=== PATIENT | male | born 1950 | race Caucasian/White ===

== ENCOUNTER 2016-11-02 13:01 | Inpatient (IN) | payer MEDICARE ==
[2016-11-02] MEDS ORDERED: Ondansetron INJ* 2 MG/ML VIAL IV PRN (16:11)
[2016-11-02] MEDS ORDERED: Acetaminophen TAB* 325 MG PO PRN (16:11)
[2016-11-02] MEDS ORDERED: NS 0.9% 1000 ML* 1,000 ML IV SCH (17:15)
[2016-11-02 17:45] LABS: Hematocrit 44 % (42-52); Hemoglobin 14.2 g/dl (14.0-18.0); Mean Corpuscular HGB Conc 33 g/dl (31-36); Mean Corpuscular Hemoglobin 30 pg (27-31); Mean Corpuscular Volume 93 fL (80-94); Mean Platelet Volume 10 um3 (7.4-10.4); Red Blood Count 4.69 10^6/ul (4.0-5.4); Red Cell Distribution Width 17 % (10.5-15); White Blood Count 8.5 10^3/ul (3.5-10.8)
[2016-11-02 17:59] LABS: BUN/Creatinine Ratio 69.7 (8-20); Calcium 9.4 mg/dL (8.6-10.3); EGFR African American 343.5 (>60); EGFR Non-African American 267.1 (>60); Potassium 3.9 mmol/L (3.5-5.0)
--- NOTE | 2016-11-02 18:02 | HP ---
HISTORY AND PHYSICAL: * Addendum to History and Physical dictated by Abhay Rodriguez NP. ADDENDUM: Mr. Richard is a 66-year-old male with history of muscular dystrophy who collapsed today during physical therapy session. There is a suspicion that maybe he had a seizure. He was transferred from [facility] after his CT showed two, over 2 cm, lesions in his brain with vasogenic edema. The patient was transferred to our facility for further evaluation and neurosurgery consult. For further details of the patient's presentation and plan, please see history and physical dictated by Abhay Rodriguez on 11/02/16, with which I agree. [id number] #: [id number] MTDD
--- NOTE | 2016-11-02 18:02 | HP ---
ATTENDING PHYSICIAN ADDENDUM NOW INCLUDED ON THIS REPORT CC: Dr. Motta; Dr. Powell * HISTORY AND PHYSICAL: DATE OF ADMISSION: 11/02/16 PRIMARY CARE PROVIDER: Dr. Motta. ATTENDING PHYSICIAN WHILE IN THE HOSPITAL: Dr. Rosalba Riley * (report* dictated by Abhay Rodriguez NP). CONSULTING NEUROSURGEON: Dr. Powell. CHIEF COMPLAINT: Syncope. HISTORY OF PRESENT ILLNESS: Mr. Richard is a 66-year-old male patient. He carries a history of coronary artery disease, hypertension, AFib, SD, hyperlipidemia, spinal muscular atrophy. He comes in to the [facility] today because he had an episode when he was at physical therapy. He had no prodrome. The last thing he remembered is that his physical therapist was going to see another patient. The next thing he knew he woke up and he was in [facility]. He woke up, his tongue was sore. He was told that he bit his tongue pretty hard. He was told that he was unresponsive and he was sent to [facility] where he was evaluated with CAT scan which showed that he did have an intracranial mass and because of this, he was sent to the hospital. There was also noted to be vasogenic edema surrounding the mass as well. He denied having any chest pain prior to or after this. Denied having any shortness of breath. He denied having any recent fevers, chills or cough. He has not had any change in medications, but there was concern because of the intracranial mass and the fact that he would need a neurosurgical evaluation. He was sent to the [facility] for evaluation. PAST MEDICAL HISTORY: Significant for: 1. Hypertension. 2. Hyperlipidemia. 3. CAD. 4. SD. 5. Spinal muscular atrophy which has left him wheelchair bound. PAST SURGICAL HISTORY: 1. He has had a tonsillectomy. 2. Cardiac cath. 3. Left hip surgery. 4. Pacemaker. HOME MEDICATIONS: According to the list that he provided include: 1. Lasix 20 mg daily. 2. Allopurinol 300 mg p.o. daily. 3. Apixaban 5 mg daily. ALLERGIES TO MEDICATIONS: Include no known drug allergies. FAMILY HISTORY: His mother had a history of hypertension. Father had a history of SD. SOCIAL HISTORY: He does not smoke. He rarely drinks alcohol. Surrogate decision maker is his sister, Nina. REVIEW OF SYSTEMS: There is no documented fever. He denied having any significant weight change. There was no double vision. He denies having any ear discharge. There was no rhinorrhea. There is no sore throat. There is no thyroid enlargement. Denied having any chest pain. There was no shortness of breath. There was no abdominal pain. No nausea. No vomiting. No dysuria. No frequency. There was question of seizure. There was loss of consciousness. Review of 14 systems completed, all others negative. PHYSICAL EXAMINATION GENERAL: At this time, Mr. Richard is a 66-year-old male patient. He is sitting in the hospital bed. He does not appear to be in any acute distress. VITAL SIGNS: Blood pressure 128/89, pulse 81, respirations 18, O2 sat 100%, and temperature 98.0. HEENT: Head is atraumatic and normocephalic. Eyes: EOMs intact. Sclerae are anicteric and not pale. Throat: Oral mucosa appears to be moist. No oropharyngeal erythema. NECK: Supple. LUNGS: Clear to auscultation. No wheezes, rales, or rhonchi. HEART: Sounds S1, S2. Regular rate and rhythm. No murmurs, rubs, or gallops. ABDOMEN: Soft, flat, nontender. Bowel sounds present. EXTREMITIES: He has essentially no range of motion to the lower extremities. Right upper extremity: He does have about 5/5 strength, but the left is significantly weakened compared to the right. This is his baseline from the spinal muscular atrophy. NEUROLOGIC: He is awake, he is alert, he is oriented x3. His speech is clear. His tongue is midline. Transit Operator are equal, but again, he has significant weakness to his extremities from the spinal muscular atrophy. Strength in his lower extremities is about 1/5. Strength in his right upper extremity is maybe about 5/5 strength. In the left upper extremity, he probably has about 3/5 strength. SKIN: Intact. LABORATORY DATA/DIAGNOSTIC STUDIES: Revealed sodium of 142, potassium of 3.4, chloride of 103, bicarb 26, BUN 33, creatinine of 0.5, glucose of 122, calcium 9.9. Total bili 0.7, AST 19, ALT 20, alk phos 60. Troponin was 0.05. His PT was 11. His INR was 1.03. His WBC was 4.9, RBC 4.65, his hemoglobin was 14.7, hematocrit of 43, platelet count of 116,000. Chest x-ray was noted to be negative. He had a CT of the brain which showed impression: Two lesions in the left middle cranial fossa measuring 2.9 cm x 2.4 cm, significant associated white matter edema with mass effect, but no midline shift. Correlation with brain MRI with and without contrast to be obtained. He had no acute intracranial hemorrhage. He had an EKG obtained today which revealed a paced rhythm with a rate of 79. No further evaluation due to being paced. Old medical records were reviewed. ASSESSMENT AND PLAN: Mr. Richard is a 66-year-old male patient that presented to [facility] today with complaints of having an episode of loss of consciousness. On evaluation, found to have intracranial mass. He will be admitted under inpatient status for: 1. Intracranial mass: At this point, this is obviously concerning for malignancy. We are going to go ahead and get a consult with Dr. Powell. I have ordered Decadron 4 mg every 8 hours and Keppra 1000 mg IV b.i.d. I will at this point get in touch with Neurosurgery who will evaluate him. We will get a CT of the brain with contrast and a CT of the chest, abdomen, and pelvis to make sure that there is not any other sources or any other malignancies or tumors and we will get neuro checks, place him on seizure precautions. 2. Elevated troponin: Etiology is unclear. Question if he may have had an elevated heart rate when this happened. May be demand ischemia. I will cycle these. I will get an echo and I will also place him on telemetry and I will interrogate his pacemaker. 3. Coronary artery disease: We will continue his current medical regimen. 4. Spinal muscular atrophy: Continue his current medical regimen. 5. Hyperlipidemia: Again, we will continue current medical regimen. 6. Atrial fibrillation: I am going to hold the Eliquis in the setting of this acute illness as we may need to do biopsies or possibly invasive procedures. 7. Code status: Full code. 8. Fluids, electrolytes, and nutrition: He can have a heart healthy diet. TIME SPENT: Time spent on the admission was approximately 70 minutes; greater than half the time was spent [id number] with the patient obtaining my history and physical, other half of the time spent going over the plan of care with the patient and implementing plan of care. I did discuss the plan of care with my attending, Dr. Riley; she is in agreement. ABHAY RODRIGUEZ NP Addendum to History and Physical dictated by Abhay Rodriguez NP: ADDENDUM: Mr. Richard is a 66-year-old male with history of muscular dystrophy who collapsed today during physical therapy session. There is a suspicion that maybe he had a seizure. He was transferred from [facility] after his CT showed two, over 2 cm, lesions in his brain with vasogenic edema. The patient was transferred to our facility for further evaluation and neurosurgery consult. For further details of the patient's presentation and plan, please see history and physical dictated by Abhay Rodriguez on 11/02/16, with which I agree. ROSALBA RILEY MD [id number] #: [id number] #: [id number] LIU
[2016-11-02] MEDS ORDERED: Iohexol 300* (CONTRAST) 10 ML SDV IV ONE (18:26)
[2016-11-02] MEDS ORDERED: KCL 10 MEQ/50 ML IVPREMIX* 10 MEQ/50 ML BAG IV SCH (19:00)
[2016-11-02] MEDS: KCL 10 MEQ/50 ML IVPREMIX* 10 MEQ/50 ML BAG IV SCH (19:34)
--- NOTE | 2016-11-02 19:36 | RAD ---
INDICATION: Brain mass. COMPARISON: Comparison is made with a prior outside chest x-ray study from November 02, 2016. TECHNIQUE: A CT scan of the chest, abdomen and pelvis was performed with intravenous and oral contrast following intravenous injection of 72 ml of Omnipaque 300 nonionic contrast. Contiguous axial sections were obtained from the lung apices through the symphysis pubis. Images were reconstructed in the coronal and sagittal planes. FINDINGS: There are patchy infiltrates present in the right lower lobe and to a lesser extent in the posterior aspect of the right upper lobe suggestive of pneumonia. No pleural effusion is seen. No significant enlarged mediastinal or hilar lymph nodes are seen. There is a multilead transvenous cardiac pacemaker present. The heart is within normal limits in size. No pericardial effusion is present. The thoracic aorta is normal in caliber. The liver and spleen are normal in size without significant focal abnormality. No calcified gallstones are seen. The pancreas appears to be within normal limits in size. The kidneys and adrenal glands are normal in size. There is no evidence for hydronephrosis. There are multiple small bilateral renal cysts present. The abdominal aorta is normal in caliber. There is moderate calcific plaque present. No significant enlarged retroperitoneal lymph nodes are seen. The stomach, small and large bowel appear nondistended. There is no evidence for diverticulitis or colitis. No free intraperitoneal air or fluid is seen. No significant focal osseous abnormality is seen. There are postsurgical changes in the proximal left femur. There is severe muscle atrophy within the paraspinal muscles throughout the chest, abdomen, pelvis and within the rectus abdominis muscles and within the pelvic muscles. IMPRESSION: 1. RIGHT UPPER AND LOWER LOBE INFILTRATES SUGGESTIVE OF PNEUMONIA, RECOMMEND CLINICAL CORRELATION. 2. NO EVIDENCE FOR INTRA-ABDOMINAL MASS OR FLUID COLLECTION. 3. POSTSURGICAL CHANGES IN THE LEFT HIP AND DIFFUSE MUSCLE ATROPHY IN THE CHEST, ABDOMEN AND PELVIS.
[2016-11-02 20:13] LABS: Troponin I 0.05 ng/mL (<0.04)
--- NOTE | 2016-11-02 21:01 | RAD ---
INDICATION: Brain mass. COMPARISON: Correlation is made to prior outside noncontrast CT of the brain from November 02, 2016. TECHNIQUE: Contiguous axial sections of the brain were obtained from the skull base to the vertex with contrast following intravenous injection of 75 ml of Omnipaque 300 nonionic contrast. FINDINGS: There is a dural based mass present in the medial inferior left temporal lobe adjacent to the cavernous sinus measuring 2.5 cm AP by 2.1 cm transverse by 2.2 cm craniocaudad. This appears to have a small area of faint peripheral calcification on the noncontrast study and demonstrates uniform dense contrast enhancement. There is relatively prominent adjacent vasogenic edema with effacement of the temporal sulci, partial compression of the sylvian fissure and mild mass effect on the left lateral ventricle. No other masses or abnormal enhancement is seen. No significant focal osseous abnormality is present. The visualized portion of the paranasal sinuses and mastoid air cells appear clear. The results of this exam were discussed with the referring clinician. IMPRESSION: DURAL-BASED MASS IN THE INFERIOR MEDIAL LEFT TEMPORAL LOBE. THE LOCATION, ENHANCEMENT CHARACTERISTICS AND CALCIFICATION WOULD BE CONSISTENT WITH A MENINGIOMA ALTHOUGH WITH THE RATHER EXTENSIVE VASOGENIC EDEMA THE POSSIBILITY OF A MORE AGGRESSIVE LESION SUCH METASTATIC FOCUS OR A GLIAL TUMOR CANNOT BE EXCLUDED.
[2016-11-02] MEDS: cefTRIAXone VIAL(*) 1,000 MG in NS 0.9% 50 ML* 50 ML IVPB SCH (21:19)
[2016-11-02] MEDS: Azithromycin IV(*) 500 MG in NS 0.9% 250 ML* 250 ML IVPB SCH (21:44)
[2016-11-02] MEDS ORDERED: NS 0.9% 250 ML* 250 ML ONE (22:51)
[2016-11-02] MEDS: Dexamethasone IV* 4 MG/ML 1 ML (4 MG) IV SLOW PU SCH (23:17)
[2016-11-03] MEDS: Dexamethasone IV* 4 MG/ML 1 ML (4 MG) IV SLOW PU SCH ×3 (05:06→23:03)
[2016-11-03 07:46] LABS: Hematocrit 36 % (42-52); Hemoglobin 11.9 g/dl (14.0-18.0); Mean Corpuscular HGB Conc 33 g/dl (31-36); Mean Corpuscular Hemoglobin 31 pg (27-31); Mean Corpuscular Volume 93 fL (80-94); Mean Platelet Volume 11 um3 (7.4-10.4); Red Blood Count 3.84 10^6/ul (4.0-5.4); Red Cell Distribution Width 17 % (10.5-15); White Blood Count 6.9 10^3/ul (3.5-10.8)
[2016-11-03] MEDS ORDERED: Perflutren Lipid Microsphere* 3 ML VIAL ONE (07:47)
[2016-11-03 07:53] LABS: BUN/Creatinine Ratio 78.3 (8-20); Calcium 8.6 mg/dL (8.6-10.3); EGFR Non-African American 405.1 (>60); Potassium 3.9 mmol/L (3.5-5.0)
[2016-11-03] MEDS ORDERED: Furosemide TAB* 20 MG PO SCH (09:00)
--- NOTE | 2016-11-03 09:04 | ECHO ---
Patient: NANCY EUGENE Rec#: [id number] : 1950 Date: 11/03/2016 Age: 66y Height: 170.18 cm / 67.0 in Weight: 54.43 kg / 120.0 lbs Sex: M BSA: 1.63 Room#: 438 Admit Date#: 11/02/2016 Type: Inpatient Referring: Abhay Rodriguez NP Reading: Jaquan Brooks MD Pan Cleaner: Jeri Queen RDCS CC: Compa Baeza MD Transthoracic Echocardiogram Indication: CAD BP: 90/51 HR: 59 Rhythm: Paced Findings History: Admitted with stroke-like symptoms, PMHx: CAD,OR,PCI,HTN,ischemic cardiomyopathy,s/p pacer insert. Technical Comments: The study is technically limited due to poor parasternal windows. Completed at 0830. Left Ventricle: The left ventricular chamber size is normal. There is a focal wall motion abnormality present.ALthoug poor imaging in general, the appex is severely hypokinetic to akinetic, the mid to distal anterio wall appears hypokinetic but is poorly visualized. There is moderately decreased left ventricular systolic function. The estimated ejection fraction is 35-40%. There is abnormal ventricular septal wall motion consistent with right ventricular pacemaker. The assessment of diastolic function is non-diagnostic. Left Atrium: The left atrium is slightly dilated. Right Ventricle: The right ventricular cavity size is normal. The right ventricular global systolic function is moderately reduced. The septum has abnormal paradoxical motion consistent with RV pacemaker. A pacemaker wire is visualized in the right ventricle. Right Atrium: The right atrium is slightly dilated. A pacemaker wire is visualized in the right atrium. Aortic Valve: The aortic valve structure is not well visualized. Mitral Valve: The mitral valve leaflets are mildly thickened. There is mild to moderate mitral regurgitation. The mitral regurgitant jet is centrally directed. Tricuspid Valve: The tricuspid valve leaflets are mildly thickened. There is mild tricuspid regurgitation. There is evidence of moderate pulmonary hypertension. There is no tricuspid stenosis. Pulmonic Valve: The pulmonic valve structure is not well visualized. Pericardium: The pericardium appears normal. Aorta: The ascending aorta is not well visualized. There is no dilatation of the aortic arch. There is no dilation of the aortic root. Pulmonary Artery: The main pulmonary artery is not well visualized. Venous: The venous system is not well visualized. Contrast: Definity was used to optimize study. A total of 3ml. utilized. Intravenous contrast was used to enhance endocardial border definition. Conclusions The study is technically limited due to poor parasternal windows.Off axis views noted. Contrast used for enhanced LV assessment. There is moderately decreased left ventricular systolic function. There is a focal wall motion abnormality present. The appex is severely hypokinetic to akinetic, the mid to distal anterior wall appears hypokinetic . The estimated ejection fraction is 35-40%. There is mild to moderate mitral regurgitation. There is mild tricuspid regurgitation. There is evidence of moderate pulmonary hypertension. No reports of prior studies offered for comparison. Measurements Name Value Normal Range RVIDd (AP) 2D 2.4 cm (0.9 - 2.6) RVDdMajor (2D) 4.4 cm (2.2 - 4.4) RAd ISD 4CH 5.5 cm (3.4 - 4.9) RA (A4C)W 4.6 cm (2.9 - 4.6) IVSd (2D) 0.7 cm (0.6 - 1) LVPWd (2D) 0.8 cm (0.6 - 1) LVIDd (2D) 5.2 cm (3.6 - 5.4) LVIDs (2D) 4.3 cm - LV FS (2D) 17 % (25 - 45) Aortic Annulus 2.1 cm (1.4 - 2.6) Ao root diameter (2D) 3.5 cm (2.1 - 3.5) Aortic arch 2.3 cm (1.8 - 3.4) Descending Ao 0.5 cm - LA dimension (AP) 2D 3 cm (2.3 - 3.8) LAd ISD 4CH 5.8 cm (2.9 - 5.3) LA ISD 4CH W 4.9 cm (2.5 - 4.5) Name Value Normal Range LA ESV SP 4CH (A/L) 99 ml - LA ESV SP 2CH (A/L) 104 ml - LA ESV BP (A/L) 106 ml - LA ESV BP (A/L) index 64.96 ml/m2 - LA ESV SP 4CH (MOD) 87 ml - LA ESV SP 2CH (MOD) 98 ml - Name Value Normal Range MV E-wave Vmax 1 m/sec - MV deceleration time 208 msec - MV A-wave Vmax 0.3 m/sec - MV E:A ratio 3.68 ratio - LV septal e' Vmax 0.04 m/sec - LV lateral e' Vmax 0.08 m/sec - LV E:e' septal ratio 25 ratio - LV E:e' lateral ratio 12.5 ratio - Name Value Normal Range AV Vmax 1.3 m/sec - AV VTI 25.2 cm - AV peak gradient 6.3 mmHg - AV mean gradient 3.16 mmHg - LVOT Vmax 0.8 m/sec - LVOT VTI 15.7 cm - LVOT peak gradient 2.8 mmHg - LVOT mean gradient 1.07 mmHg - Name Value Normal Range MR Vmax 3.2 m/sec - MR VTI 114.5 cm - Name Value Normal Range TR Vmax 3.5 m/sec - TR peak gradient 48 mmHg - RAP 8 mmHg - RVSP 56 mmHg -
--- NOTE | 2016-11-03 10:35 | CONSULT ---
Consult Consult: Neurosurgery Consult Date of consult: 11/03/16 Reason for consult: Intracranial mass Referring physician: Dr. Rosalba Riley HPI: This is a 66 year old male with past medical history significant for spinal muscular atrophy, coronary artery disease, hypertension, atrial fibrillation, CA and hyperlipidemia who presented to the [facility] yesterday and was transferred to [facility] [place] [place] after an episode of seizure-like activity while attending physical therapy for spinal muscular atrophy. He states that he was participating in PT and the next thing he remembers, he was at [facility] being evaluated. CT brain at [facility] showed intracranial mass and he was therefore transferred to [facility] [place] [place] for admission, further work up and neurosurgical consult. He reports one previous episode, approximately one year ago, when he was having significant difficulty with word finding and speech. It was recommended that he present to the emergency department for evaluation at that time which he did not do. There was no loss of consciousness with that episode and no convulsions. He reports occasional difficulty word finding to a lesser severity of the episode last year. He also has significant upper and lower extremity weakness secondary to SMA. He denies fever, chills, headache, changes in vision, changes in hearing, changes in speech, difficulty swallowing , chest pain, difficulty breathing, numbness, tingling and pain in the upper and lower extremities. Past medical history: 1. Spinal muscular atrophy 2. HTN 3. CAD 4. HLD 5. CA Past surgical history: 1. Cardiac catheterization 2. Pacemaker placement 3. Tonsillectomy 4. Left hip repair Home medications: 1. Allopurinol TAB* [Zyloprim TAB*] 300 mg PO DAILY 09/26/14 [History Confirmed 11/02/16] 2. Furosemide TAB* [Lasix TAB*] 20 mg PO DAILY 09/26/14 [History Confirmed 11/02] 3. Apixaban* [Eliquis*] 5 mg PO BID 11/02/16 [History Confirmed 11/02/16] Allergies: No known allergies Social history: He is a nonsmoker and occasionally has a drink with visitors. ROS: Full ROS completed; pertinent findings stated in HPI and all others negative. Physical exam: Vital Signs: Temp Pulse Resp BP Pulse Ox 99.6 F 65 16 96/57 90 11/03/16 08:09 11/03/16 08:09 11/03/16 08:09 11/03/16 08:09 11/03/16 08:09 General: Alert and oriented. No distress. Sitting up comfortably in bed, eating breakfast. HEENT: Head is normocephalic and atraumatic. EOMI, PERRLA, glasses in place. Gross hearing intact. Moist mucus membranes. Neck: Supple, symmetric and nontender. CV: Radial pulses 2+ and equal. Pedal pulses palpable. Regular rate. Lungs: Breathing is nonlabored. Lungs are clear. Abdomen: Normoactive bowel sounds. Soft, nontender and nondistended. Neuro: Speech is clear and coherent. Responds appropriately to questions. CN II- XII intact. Sensation intact throughout. Right upper extremity strength 3+/5, left upper extremity strength 3/5. Associate Editor strength significantly diminished bilaterally, right slightly stronger than left. Right and left dorsiflexion and EHL strength 5/5. Otherwise, right and left lower extremity strength 2/5. Strength deficits are baseline secondary to SMA. Extremities: Significant muscle atrophy of the bilateral upper and lower extremities. Laboratory Tests 11/02/16 11/02/16 11/02/16 17:30 17:30 17:30 WBC 8.5 RBC 4.69 Hgb 14.2 Hct 44 MCV 93 MCH 30 MCHC 33 RDW 17 H Plt Count 106 L MPV 10 Neut % (Auto) 89.0 H Lymph % (Auto) 4.3 L Clayton % (Auto) 5.4 Eos % (Auto) 0.7 Baso % (Auto) 0.6 Absolute Neuts (auto) 7.6 Absolute Lymphs (auto) 0.4 L Absolute Monos (auto) 0.5 Absolute Eos (auto) 0.1 Absolute Basos (auto) 0.1 Absolute Nucleated RBC 0.01 Nucleated RBC % 0.1 INR (Anticoag Therapy) 1.20 H Sodium 135 Potassium 3.9 Chloride 106 Carbon Dioxide 21 L Anion Gap 8 BUN 23 Creatinine 0.33 L Est GFR ( Amer) 343.5 Est GFR (Non-Af Amer) 267.1 BUN/Creatinine Ratio 69.7 H Glucose 95 Calcium 9.4 Troponin I 0.05 H* 11/02/16 11/02/16 11/03/16 20:37 23:27 04:50 WBC 6.9 RBC 3.84 L Hgb 11.9 L Hct 36 L MCV 93 MCH 31 MCHC 33 RDW 17 H Plt Count 100 L MPV 11 H Neut % (Auto) 93.7 H Lymph % (Auto) 3.8 L Clayton % (Auto) 2.3 Eos % (Auto) 0.1 Baso % (Auto) 0.1 Absolute Neuts (auto) 6.5 Absolute Lymphs (auto) 0.3 L Absolute Monos (auto) 0.2 Absolute Eos (auto) 0 Absolute Basos (auto) 0 Absolute Nucleated RBC 0 Nucleated RBC % 0 INR (Anticoag Therapy) Sodium Potassium Chloride Carbon Dioxide Anion Gap BUN Creatinine Est GFR ( Amer) Est GFR (Non-Af Amer) BUN/Creatinine Ratio Glucose Calcium Troponin I 0.06 H* 0.09 H* 11/03/16 11/03/16 04:50 04:50 WBC RBC Hgb Hct MCV MCH MCHC RDW Plt Count MPV Neut % (Auto) Lymph % (Auto) Clayton % (Auto) Eos % (Auto) Baso % (Auto) Absolute Neuts (auto) Absolute Lymphs (auto) Absolute Monos (auto) Absolute Eos (auto) Absolute Basos (auto) Absolute Nucleated RBC Nucleated RBC % INR (Anticoag Therapy) 1.21 H Sodium 137 Potassium 3.9 Chloride 108 Carbon Dioxide 20 L Anion Gap 9 BUN 18 Creatinine 0.23 L Est GFR ( Amer) 521.0 Est GFR (Non-Af Amer) 405.1 BUN/Creatinine Ratio 78.3 H Glucose 108 H Calcium 8.6 Troponin I 0.05 H* Imagin. CT brain with contrast shows enhancing intracranial mass present in the left medial to inferior temporal lobe associated with edema. 2. CT chest/abdomen/pelvis shows right upper and lower lobe infiltrates. Assessment: This is a 66 year old male with past medical history significant for CAD, CA, HTN and spinal muscular atrophy who presented after an episode of loss of consciousness related to possible seizure. The patient is neurologically stable at this time with no further seizure activity. CT brain reveals left temporal intracranial mass with associated edema. The patient has significant strength and mobility deficits at baseline secondary to SMA. Surgical resection of the mass was discussed with the patient including potential risks of surgery and outcomes. He is unsure whether or not he would like to undergo brain surgery because he states that his mind is the only thing he has left and he would rather than lose his mental capacity. We also discussed the potential risks and outcomes of not undergoing surgery. He would like time to discuss options with his family and members of the caodaism before making a decision. This case was discussed with Dr. Powell and GEGE Bo. Plan: 1. Continue Keppra and Decadron. 2. Continue neuro checks. 3. Patient is considering surgery.
--- NOTE | 2016-11-03 10:47 | PN ---
Subjective Date of Service: 11/03/16 Interval History: This is a 66 yo gentleman with spinal muscular atrophy, CAD s/p AMI, afib with pacer in place who was transferred from [facility] yesterday after sustaining a seizure while at and an intracranial mass noted on CT. Neurosurgery is consulting. Patient offers no acute complaints. No further seizure activity. He denies MICHELE , visual changes, new weakness, numbness or tingling. Patient has little use of his extremities at baseline, gets around with the use of an electric scooter. Objective Active Medications: Acetaminophen (Tylenol Tab*) 650 mg PO Q4H PRN PRN Reason: FEVER/PAIN Dexamethasone Sodium Phosphate (Decadron Iv*) 4 mg IV SLOW PU Q8HR [facility] Last Admin: 11/03/16 05:06 Dose: 4 mg Furosemide (Lasix Tab*) 20 mg PO DAILY [facility] Last Admin: 11/03/16 08:20 Dose: 20 mg Levetiracetam 1,000 mg/ Sodium (Chloride) 110 mls @ 440 mls/hr IVPB Q12H [facility] Last Admin: 11/03/16 05:05 Dose: 440 mls/hr Sodium Chloride (Ns 0.9% 1000 Ml*) 1,000 mls @ 75 mls/hr IV PER RATE [facility] Last Admin: 11/02/16 17:37 Dose: 75 mls/hr Ceftriaxone Sodium 1,000 mg/ (Sodium Chloride) 50 mls @ 200 mls/hr IVPB Q24H [facility] Last Admin: 11/02/16 21:19 Dose: 200 mls/hr Azithromycin 500 mg/ Sodium (Chloride) 250 mls @ 250 mls/hr IVPB Q24H [facility] Last Admin: 11/02/16 21:44 Dose: 250 mls/hr Ondansetron HCl (Zofran Inj*) 4 mg IV Q6H PRN PRN Reason: NAUSEA Vital Signs: Temp Pulse Resp BP Pulse Ox 99.6 F 65 16 96/57 90 11/03/16 08:09 11/03/16 08:09 11/03/16 08:09 11/03/16 08:09 11/03/16 08:09 Oxygen Devices in Use Now: None Appearance: Well appearing elderly gentleman in NAD Ears/Nose/Mouth/Throat: - - ecchymosis of R lateral tongue Respiratory: Symmetrical Chest Expansion and Respiratory Effort, Clear to Auscultation Cardiovascular: NL Sounds; No Murmurs; No JVD, RRR Extremities: No Edema Skin: No Rash or Ulcers Neurological: Alert and Oriented x 3, - - CN II-XII intact, flacid paralysis of extremities Result Diagrams: 11/03/16 04:50 11/03/16 04:50 Diagnostic Imaging: CT head with contrast - dural based mass of the L inferior temporal lobe with associated vasogenic edema CT chest/abd/pelvis - Infiltrate in R upper and lower lobes, no masses noted Echo - focal WMA at apex with hypokinesis/akinesis and LVEF 35-40% Assess/Plan/Problems-Billing Assessment: This is a 66 yo male with spinal muscular atrophy, CAD s/p AMI 4-5 years ago, afib with pacer in place and chronically anticoagulated with Eliquis, HTN and HLD who was transferred from [facility] after a new seizure observed and intracranial mass noted on CT. - Patient Problems (1) Intracranial mass Comment: Dural based mass with associated vasogenic edema No additional masses noted on chest/abd/pelvis CT Appreciate neurosurgery consult Patient is reluctant to consider surgical intervention as he is severely limited physically and worried about losing any of his cognitive faculties He would like to discuss things further with his friends and family and shift superintendent caustic cresylate (2) Seizure Comment: Started on Keppra and Decadron No further seizure activity (3) Ischemic cardiomyopathy Comment: LVEF 35-40% with hypokinesis/akinesis of septum Patient believes that this is chronic and reports he had an NH 4-5 years ago No echo available for comparison, but requesting records from Dr Baeza in [place] (4) Elevated troponin Comment: Likely secondary to demand related to recent seizure No c/o CP, SOB, palpitations, etc (5) Atrial fibrillation Comment: Rate controlled Chronically anticoagulated with Eliquis that has been held at this time due to possible pending procedure (6) Spinal muscular atrophy Comment: Functionally a quadriplegic with some use of his LUE (7) HTN (hypertension) Comment: Slightly hypotensive overnight Lasix held (8) HLD (hyperlipidemia) (9) Pacemaker (10) Full code status (11) DVT prophylaxis Comment: SCDs Eliquis held at this time while decision making regarding resection is pending Status and Disposition: Inpatient. Patient seems to be leaning towards not pursuing surgical resection at this time, offered Hospice consult which he declined. Plan to reassess tomorrow but if he decides not to pursue resection he will likely be discharged tomorrow.
[2016-11-03 10:53] LABS: Troponin I 0.05 ng/mL (<0.04)
[2016-11-03] MEDS: cefTRIAXone VIAL(*) 1,000 MG in NS 0.9% 50 ML* 50 ML IVPB SCH (20:08)
[2016-11-03] MEDS: Azithromycin IV(*) 500 MG in NS 0.9% 250 ML* 250 ML IVPB SCH (20:58)
[2016-11-04] MEDS: Dexamethasone IV* 4 MG/ML 1 ML (4 MG) IV SLOW PU SCH (05:12)
--- NOTE | 2016-11-04 08:09 | PN ---
Progress Note - Progress Note SOAP: Subjective: []Neuro stable No further seizures Objective: []Neuro deficits stable No further seizures Assessment: []He has a small likely temporal meningioma Plan: []Case discussed with patient and his sister. My recommendation would be D/C on Keppra with plan to do F/U CT in 3 months.Could either D/C Decadron or send home on a Medrol dosepack to taper. The patient is not interested in surgery at this time.
[2016-11-04 13:58] VITALS: BP 76/49
--- NOTE | 2016-11-04 14:51 | DS ---
CC: Dr. Powell; Dr. Motta * DISCHARGE SUMMARY: DATE OF ADMISSION: 11/02/16 DATE OF DISCHARGE: 11/04/16 PRIMARY CARE PROVIDER: Dr. Motta. CONSULTING NEUROSURGEON: Dr. Powell. DISCHARGING PROVIDER: GEGE Waite SUPERVISING PHYSICIAN: Dr. Ramírez Urrutia.* (DICTATED BY GEGE WAITE) PRIMARY DISCHARGE DIAGNOSES: 1. Seizure. 2. Intraperitoneal tumor with associated vasogenic edema. 3. Elevated troponin - likely demand related secondary to seizure without evidence of acute coronary syndrome. 4. Pneumonia - community acquired. SECONDARY DISCHARGE DIAGNOSES: 1. Atrial fibrillation, anticoagulated with Eliquis. 2. Spinal muscular atrophy with severe strength deficit. The patient is functionally quadriplegic. He has very limited use of his upper extremities, but some and gets around via motorized cart. 3. Hypertension. 4. Ischemic cardiomyopathy without acute exacerbation with left ventricular ejection fraction estimated at 35% to 40%. 5. Hyperlipidemia. 6. Pacemaker in place. DISCHARGE MEDICATIONS: 1. Allopurinol 300 mg p.o. daily. 2. Eliquis 5 mg p.o. twice daily. 3. Azithromycin 250 mg p.o. daily x3 days. 4. Cefdinir 300 mg p.o. twice daily x5 days. 5. Lasix 20 mg p.o. daily. 6. Keppra 500 mg p.o. twice daily. 7. Medrol Dosepak. Medication changes: 1. Azithromycin x3 days. 2. Cefdinir x5 days. 3. Keppra. 4. Medrol Dosepak per Dr. Powell's recommendation. HOSPITAL IMAGIN. CT of the brain completed with contrast demonstrates dural-based mass in the inferior medial left temporal lobe. The location and enhancement characteristics as well as calcification will be consistent with meningioma, but there is rather extensive vasogenic edema associated and the possibility of a more aggressive lesion such as a metastatic focus or glial tumor cannot be excluded. 2. CT of the chest, abdomen, and pelvis demonstrates right upper and lower lobe infiltrate suggestive of pneumonia. No evidence for intraabdominal mass or fluid collection. There are postsurgical changes in the left hip and diffuse muscle atrophy in the chest, abdomen, and pelvis. 3. Transthoracic echocardiogram demonstrates focal wall motion abnormality. The apex is severely hypokinetic to akinetic as well the mid distal to anterior wall appears hypokinetic. Left ventricular ejection fraction is estimated at 35 % to 40%. There is [id number] mitral regurg - this appears to be unchanged when compared to prior echo from primary yarn weight and strength tester's office. 4. EKG demonstrates paced rhythm without an intrinsic rhythm identified. HOSPITAL COURSE: This is a 66-year-old gentleman with spinal muscular atrophy causing rather severe and diffuse weakness leaving him functionally as a quadriplegic as well as coronary artery disease, status post acute DC and subsequent ischemic cardiomyopathy with atrial fibrillation, hypertension, and hyperlipidemia, who was transferred to our hospital from [place]. The patient sustained seizure during physical therapy and initial imaging in the emergency department at [facility] revealed an intracranial mass. The patient was subsequently transferred to our facility for neurosurgery evaluation. The patient was started on dexamethasone and Keppra. He had no additional neurologic findings apart from his diffuse weakness, which is chronic for him. The patient had no additional seizure activity. MRI of his brain was not possible as he has a pacemaker in place. A CT of his brain was repeated with contrast, which demonstrated a dural-based mass in the left temporal lobe with associated vasogenic edema. Subsequent scan of his chest, abdomen, and pelvis did not demonstrate any additional tumors. The patient denied recent constitutional symptoms or other neurologic symptoms. He did have one episode of lesser severity with some word finding difficulty about a year ago, but nothing since then. He denies headache or other acute neurologic changes. Recommendation from Dr. Powell included surgical excision of the mass, but the patient was quite weary to consider this. He has severe physical deficits, but has all other mental faculties and his concerns that those may be compromised by an intracranial surgery. The patient also recognizes because of the severity of his physical deficits that his life expectancy may be somewhat limited and for this reason, he is leaning towards considering more palliative treatment options. At the very least, the patient does not desire immediate surgical intervention, but is willing to take antiepileptic medications to prevent further seizure. FOLLOWUP PLAN AND DISPOSITION: The patient is being discharged to home where he lives alone, but has help around the house and with some of his daily care needs. He will be discharged with Keppra as described above. Antibiotics for treatment of suspected pneumonia as outline above and Medrol Dosepak per Dr. Powell's recommendations. The patient will follow up with Dr. Powell in approximately 6 weeks with plans for repeat CT scan in approximately 3 months to evaluate stability of tumor. The patient's family also has various connections with other neurosurgeons in the area and the patient may decide to pursue those options. Recommend close followup with his primary care provider to monitor any additional symptoms. GEGE WAITE [id number]/[facility] #: [id number] LIU
== END 2016-11-04 15:20 | disposition home or self-care (01) | DRG 54 ==
LOC: MEDTELE 13:59 → OBSVTOIN 13:59
PROVIDERS: ADMIT Internal Medicine; ATTEND Internal Medicine
DX: D49.6 Neoplasm of unspecified behavior of brain (principal); J18.9 Pneumonia, unspecified organism; G93.6 Cerebral edema; G82.50 Quadriplegia, unspecified; G12.9 Spinal muscular atrophy, unspecified; I95.9 Hypotension, unspecified; R56.9 Unspecified convulsions; I48.91 Unspecified atrial fibrillation; I25.5 Ischemic cardiomyopathy; I25.10 Atherosclerotic heart disease of native coronary artery without angina pectoris; R74.8 Abnormal levels of other serum enzymes; E78.5 Hyperlipidemia, unspecified; I10 Essential (primary) hypertension; Z95.0 Presence of cardiac pacemaker; I25.2 Old myocardial infarction; Z82.49 Family history of ischemic heart disease and other diseases of the circulatory system; Z79.01 Long term (current) use of anticoagulants
CPT/HCPCS: 36415; 70460; 71260; 74177; 80048; 84484; 85025; 85610; 93005; 93306; A9270-GY; C8929; J0456; J0696; J1100; J3480; Q9967

== ENCOUNTER 2017-11-22 23:06 | Emergency (ER) | payer MEDICARE ==
[2017-11-22] MEDS ORDERED: NS 0.9% 1000 ML* 1,000 ML IV ONE (23:48)
[2017-11-23 00:12] LABS: ABS Basophils 0 10^3/ul (0-0.2); ABS Eosinophils 0.2 10^3/ul (0-0.6); ABS Lymphocytes 0.5 10^3/ul (1.0-4.8); ABS Monocytes 0.4 10^3/ul (0-0.8); ABS Neutrophils 4.2 10^3/ul (1.5-7.7); ABS Nucleated RBC 0 10^3/ul; Eosinophil % 2.8 % (0-6); Hematocrit 38 % (42-52); Hemoglobin 12.5 g/dl (14.0-18.0); Lymphocyte % 9.4 % (25-47); Mean Corpuscular HGB Conc 33 g/dl (31-36); Mean Corpuscular Hemoglobin 32 pg (27-31); Mean Corpuscular Volume 95 fL (80-94); Mean Platelet Volume 10.2 um3 (7.4-10.4); Nucleated Red Blood Cells % 0; Platelet Count 126 10^3/ul (150-450); Red Blood Count 3.95 10^6/ul (4.00-5.40); Red Cell Distribution Width 15 % (10.5-15); White Blood Count 5.3 10^3/ul (3.5-10.8)
[2017-11-23 00:22] LABS: INR 1.75 (0.77-1.02)
[2017-11-23 00:29] LABS: EGFR Non-African American 213.3 (>60)
[2017-11-23] MEDS ORDERED: levETIRAcetam IV* 250 MG in NS 0.9% 100 ML* 100 ML IVPB ONE (00:39)
[2017-11-23 01:00] LABS: Urine Appearance Clear; Urine Blood Negative (Negative); Urine Color Yellow; Urine Ketones Negative (Negative); Urine Protein Negative (Negative); Urine Specific Gravity 1.014 (1.010-1.030); Urine Urobilinogen Negative (Negative)
[2017-11-23 01:31] VITALS: BP 128/76
--- NOTE | 2017-11-23 05:14 | ED ---
Shelly Tirado Jade, scribed for David Issa MD on 11/23/17 at 0049 . Altered Mental Status - HPI Summary HPI Summary: Pt is a 67 y/o male BIBA who present s/p seizure at 21:00. As per sister, he has a PMHx of seizures and 3 large meningiomas. The brain CT 1 year that diagnosed the meningiomas revealed edema and shifting, and were not recommended to be removed. He is in a wheelchair due to his spinal muscular atrophy. Pt is on steroids and Keppra after a seizure a few months ago. He had a similar episode about one month ago, and another CT revealed the tumors were slightly larger with no edema or shifting. This episode was due to a missed Keppra dose, and pt did not remember the seizure episode. He states he missed a single Keppra dose a few days ago of 250 mg. Pt denies any head injury, SOB, joint pain , or fever. - History Of Current Complaint Chief Complaint: EDSeizure Stated Complaint: SEIZURE Time Seen by Provider: 11/23/17 00:16 Hx Obtained From: Patient, Family/Camp Recreation Specialist - Sister Onset/Duration: Resolved, Suddenly - 21:00 Severity Currently: None Aggravating Factor(s): Medication Change - Forgot Keppra dose a few days of 250 mg Alleviating Factor(s): Nothing Associated Signs And Symptoms: Positive: Seizure. Negative: Fever Related History: Seizure - Allergies/Home Medications Allergies/Adverse Reactions: Allergies Allergy/AdvReac Type Severity Reaction Status Date / Time No Known Allergies Allergy Verified 09/26/14 18:30 PMH/Surg Hx/FS Hx/Imm Hx Endocrine/Hematology History: Reports: Hx Anemia - 2 years ago Cardiovascular History: Reports: Hx Congestive Heart Failure, Hx Coronary Artery Disease, Hx Hypertension, Other Cardiovascular Problems/Disorders - ME GI History: Comment Only: Other GI Disorders - dyslipidemia Musculoskeletal History: Reports: Hx Back Problems, Other Musculoskeletal History - SMA Sensory History: Reports: Hx Contacts or Glasses Denies: Hx Hearing Aid Opthamlomology History: Reports: Hx Contacts or Glasses Neurological History: Reports: Hx Seizures, Other Neuro Impairments/Disorders - spinal muscular atrophy, meningiomas - Surgical History Surgery Procedure, Year, and Place: cardiac cath x2 last one was September 2013. tonsillecomy Hx Anesthesia Reactions: No Infectious Disease History: No Infectious Disease History: Denies: Traveled Outside the [place] in Last 30 Days - Family History Known Family History: Positive: Cardiac Disease - [place], Hypertension - Social History Alcohol Use: Weekly Alcohol Amount: one shot weekly Substance Use Type: Reports: None Smoking Status (MU): Current Some Day Smoker Review of Systems Negative: Fever Negative: Shortness Of Breath Neurological: Other - Seizure All Other Systems Reviewed And Are Negative: Yes Physical Exam - Summary Physical Exam Summary: Appearance: Well appearing, no pain distress Skin: warm, dry, reflects adequate perfusion Head/face: normal Eyes: EOMI, WANDER ENT: normal. No tongue injury. Neck: supple, non-tender Respiratory: CTA, breath sounds present Cardiovascular: RRR, pulses symmetrical. Pacemaker on left chest. Abdomen: non-tender, soft Bowel Sounds: present Musculoskeletal: Muscular wasting of LE. Mild edema of feet. Neuro: normal, sensory motor intact, A&Ox3 Triage Information Reviewed: Yes Vital Signs On Initial Exam: Initial Vitals Temp Pulse Resp BP Pulse Ox 98.1 F 70 18 120/71 96 11/22/17 23:16 11/22/17 23:16 11/22/17 23:16 11/22/17 23:16 11/22/17 23:16 Vital Signs Reviewed: Yes Diagnostics - Vital Signs Vital Signs Temp Pulse Resp BP Pulse Ox 11/22/17 23:16 98.1 F 70 18 120/71 96 - Laboratory Lab Results: Lab Results 11/23/17 11/23/17 11/23/17 Range/Units 00:02 00:02 00:02 WBC (3.5-10.8) 10^3/ul RBC (4.00-5.40) 10^6/ul Hgb (14.0-18.0) g/dl Hct (42-52) % MCV (80-94) fL MCH (27-31) pg MCHC (31-36) g/dl RDW (10.5-15) % Plt Count (150-450) 10^3/ul MPV (7.4-10.4) um3 Neut % (Auto) (38-83) % Lymph % (Auto) (25-47) % Villalba % (Auto) (0-7) % Eos % (Auto) (0-6) % Baso % (Auto) (0-2) % Absolute Neuts (auto) (1.5-7.7) 10^3/ul Absolute Lymphs (auto) (1.0-4.8) 10^3/ul Absolute Monos (auto) (0-0.8) 10^3/ul Absolute Eos (auto) (0-0.6) 10^3/ul Absolute Basos (auto) (0-0.2) 10^3/ul Absolute Nucleated RBC 10^3/ul Nucleated RBC % INR (Anticoag Therapy) 1.75 H (0.77-1.02) Sodium 141 (135-145) mmol/L Potassium 3.1 L (3.5-5.0) mmol/L Chloride 103 (101-111) mmol/L Carbon Dioxide 30 (22-32) mmol/L Anion Gap 8 (2-11) mmol/L BUN 32 H (6-24) mg/dL Creatinine 0.40 L (0.67-1.17) mg/dL Est GFR ( Amer) 258.1 (>60) Est GFR (Non-Af Amer) 213.3 (>60) BUN/Creatinine Ratio 80.0 H (8-20) Glucose 138 H (70-100) mg/dL Lactic Acid 1.4 (0.5-2.0) mmol/L Calcium 9.8 (8.6-10.3) mg/dL Magnesium 2.2 (1.9-2.7) mg/dL Total Bilirubin 0.40 (0.2-1.0) mg/dL AST 15 (13-39) U/L ALT 13 (7-52) U/L Alkaline Phosphatase 61 (34-104) U/L Total Protein 6.7 (6.4-8.9) g/dL Albumin 4.2 (3.2-5.2) g/dL Globulin 2.5 (2-4) g/dL Albumin/Globulin Ratio 1.7 (1-3) 11/23/17 Range/Units 00:07 WBC 5.3 (3.5-10.8) 10^3/ul RBC 3.95 L (4.00-5.40) 10^6/ul Hgb 12.5 L (14.0-18.0) g/dl Hct 38 L (42-52) % MCV 95 H (80-94) fL MCH 32 H (27-31) pg MCHC 33 (31-36) g/dl RDW 15 (10.5-15) % Plt Count 126 L (150-450) 10^3/ul MPV 10.2 (7.4-10.4) um3 Neut % (Auto) 79.6 (38-83) % Lymph % (Auto) 9.4 L (25-47) % Villalba % (Auto) 7.7 H (0-7) % Eos % (Auto) 2.8 (0-6) % Baso % (Auto) 0.5 (0-2) % Absolute Neuts (auto) 4.2 (1.5-7.7) 10^3/ul Absolute Lymphs (auto) 0.5 L (1.0-4.8) 10^3/ul Absolute Monos (auto) 0.4 (0-0.8) 10^3/ul Absolute Eos (auto) 0.2 (0-0.6) 10^3/ul Absolute Basos (auto) 0 (0-0.2) 10^3/ul Absolute Nucleated RBC 0 10^3/ul Nucleated RBC % 0 INR (Anticoag Therapy) (0.77-1.02) Sodium (135-145) mmol/L Potassium (3.5-5.0) mmol/L Chloride (101-111) mmol/L Carbon Dioxide (22-32) mmol/L Anion Gap (2-11) mmol/L BUN (6-24) mg/dL Creatinine (0.67-1.17) mg/dL Est GFR ( Amer) (>60) Est GFR (Non-Af Amer) (>60) BUN/Creatinine Ratio (8-20) Glucose (70-100) mg/dL Lactic Acid (0.5-2.0) mmol/L Calcium (8.6-10.3) mg/dL Magnesium (1.9-2.7) mg/dL Total Bilirubin (0.2-1.0) mg/dL AST (13-39) U/L ALT (7-52) U/L Alkaline Phosphatase (34-104) U/L Total Protein (6.4-8.9) g/dL Albumin (3.2-5.2) g/dL Globulin (2-4) g/dL Albumin/Globulin Ratio (1-3) Result Diagrams: 11/23/17 00:07 11/23/17 00:02 Lab Statement: Any lab studies that have been ordered have been reviewed, and results considered in the medical decision making process. - CT Brain CT CT Interpretation: No Acute Changes - 12:42: Edema from a meningioma. No appreciable infarct, no acute hemorrhage. No changes from previous CT 02/03/17. ED physician reviewed radiology report. CT Interpretation Completed By: Radiologist - EKG 00:18 Cardiac Rate: Other Rate - Ventricular paced at 73 bpm EKG Rhythm: Sinus Rhythm ST Segment: Non-Specific Ectopy: PVCs - Single EKG Interpretation: Normal axis Altered Mental Statu Course/Dx - Course Course Of Treatment: Patient with history of epilepsy secondary to edema from meningiomas. He follows with Dr. Powell from neurosurgery. He is maintained on small doses of Keppra given his spinal muscular atrophy. He has been allegedly compliant with medications though noncompliance has been a cause of seizures in the past. He was given a 250 mg IV dose of Keppra and elbow level was drawn. He had return to normal mental status and that head CT was showing no acute changes despite his oral eliquis. He was discharging good condition to follow-up with the neurosurgeon. - Diagnoses Differential Diagnosis/HQI/PQRI: Other - Recurrent seizure, intracranial hemorrhage and intracranial edema Provider Diagnoses: History of meningioma, Spinal muscular atrophy type III, Epileptic seizure Discharge - Sign-Out/Discharge Documenting (check all that apply): Discharge/Admit/Transfer - Discharge - Discharge Plan Condition: Improved Disposition: HOME Patient Education Materials: Epilepsy (ED) Referrals: Trevor Powell MD [Medical Doctor] - Cameron Auguste MD [Primary Care Provider] - Additional Instructions: Call Dr. Powell first thing in the morning to schedule more prompt follow-up. Otherwise follow-up on 08 December as scheduled. Take your medications as scheduled. Keppra level will not be back for several days. Return if worse, repeat seizures, new symptoms or other concerns. Stay hydrated. - Billing Disposition and Condition Condition: IMPROVED Disposition: Home The documentation as recorded by the Shelly cabezas Jade accurately reflects the service I personally performed and the decisions made by Luis Manuel das Kirk, MD.
--- NOTE | 2017-11-23 08:06 | RAD ---
INDICATION: Left middle cranial fossa meningioma. Seizure. COMPARISON: Noncontrast and contrast-enhanced CT brain February 03, 2017 TECHNIQUE: Noncontrast axial source images were acquired from the skull base to the vertex. FINDINGS: Ventricles/sulci: The ventricles and cisterns are normal in size and configuration for age. There is sulcal effacement in the left middle cranial fossa and left parietal lobe, unchanged Brain parenchyma: There is again a left middle cranial fossa mass with calcification. There is associated vasogenic edema. There is a diagnosis of meningioma. The mass is better seen on the earlier contrast-enhanced examination. Overall the appearance is unchanged. There are no additional lesions. Intracranial hemorrhage:None. Extra-axial spaces: There are no abnormal extra axial fluid collections or evidence of extra-axial mass. Calvarium: There is no calvarial fracture or other calvarial abnormality. Scalp: There is no evidence of scalp or extracalvarial soft tissue abnormality. Paranasal sinuses/mastoid: The paranasal sinuses and mastoid air cells are clear. Other: None. IMPRESSION: LEFT MIDDLE CRANIAL FOSSA MASS WITH ASSOCIATED VASOGENIC EDEMA WITHOUT SIGNIFICANT INTERVAL CHANGE.
== END 2017-11-23 01:30 | disposition home or self-care (01) ==
LOC: ED 23:06
DX: G40.909 Epilepsy, unspecified, not intractable, without status epilepticus (principal); G12.9 Spinal muscular atrophy, unspecified; D32.0 Benign neoplasm of cerebral meninges; F17.200 Nicotine dependence, unspecified, uncomplicated; Z99.3 Dependence on wheelchair
CPT/HCPCS: 36415; 70450; 80053; 80177; 81003; 83605; 83735; 85025; 85610; 93005; 96374; 99283